=== PATIENT | female | born 1980 | race Caucasian/White ===

== ENCOUNTER 2021-06-26 14:09 | Emergency (ER) | payer OTHER ==
[2021-06-26] MEDS ORDERED: Sodium Chloride 0.9% 1,000 ML IV ONE (14:19)
[2021-06-26] MEDS ORDERED: Ondansetron 4 MG/2 ML SDV IVPUSH ONE (14:19)
--- NOTE | 2021-06-26 14:23 | EDM.PDOC ---
ED HPI GENERAL MEDICAL PROBLEM - General Chief Complaint: General Stated Complaint: COVID POSITIVE SOB Time Seen by Provider: 06/26/21 14:11 Source of Information: Reports: Patient History Limitations: Reports: No Limitations - History of Present Illness INITIAL COMMENTS - FREE TEXT/NARRATIVE: HISTORY AND PHYSICAL: History of present illness: Patient is a 40-year-old female who presents to the emergency room with complaints of cough and shortness of breath since 06/19/21 with a diagnosis of COVID-19 on 06/23/2021. She states over the past 2 to 3 days she has had increased SOB with nausea, vomiting, diarrhea and feeling lightheaded. She is tearful stating that she is home alone ( is out of town until 06/28/2021) and "never gets sick" and is scared. Patient denies any fever, chills, headache, change in vision, syncope or near syncope. Denies any back pain, abdominal pain, constipation or dysuria. She has no concern for . Has not noted any blood in urine or stool. Patient has not been eating and drinking appropriately. No recent travel or sick contacts. Review of systems: As per history of present illness and below otherwise all systems reviewed and negative. Past medical history: As per history of present illness and as reviewed below otherwise noncontributory. Surgical history: As per history of present illness and as reviewed below otherwise noncontributory. Social history: See social history for further information Family history: As per history of present illness and as reviewed below otherwise noncontributory. Physical exam: General: Well developed and well nourished 40-year-old female. Alert and orientated x 3. Nontoxic in appearance and in no acute distress. Vital signs are stable and have been reviewed by me. Nursing notes were reviewed. HEENT: Atraumatic, normocephalic, pupils equal and reactive bilaterally, negative for conjunctival pallor or scleral icterus, mucous membranes moist, TMs normal bilaterally, throat clear, neck supple, nontender, trachea midline. No drooling or trismus noted. No meningeal signs. No hot potato voice noted. Lungs: Clear to auscultation bilaterally. No wheezes, rales, or rhonchi. Chest nontender. Normal work of breathing, no accessory muscles used. Heart: S1S2, regular rate and rhythm without overt murmur, gallops, or rubs. No JVD. No peripheral edema Abdomen: Soft, nondistended, nontender. Normoactive bowel sounds. Negative for masses or costovertebral tenderness. Skin: Intact, warm, dry. No lesions or rashes noted. Hematologic: No petechiae or purpra. Mucosa appropriate color and normal nail bed color and refill. Extremities: Atraumatic, moves all extremities per self without difficulty or deficits, negative for cords or calf pain. Neurovascular unremarkable. Neuro: Awake, alert, oriented. Cranial nerves II through XII unremarkable. Cerebellum unremarkable. Motor and sensory unremarkable throughout. Exam nonfocal. Psychiatric: Mood and affect are appropriate. Normal thought process. Answering questions appropriately. Please note that the patient was seen and evaluated during the 2019 SARS-CoV-2 novel coronavirus pandemic period. Community viral transmission is ongoing at time of this encounter and the emergency department is operating under pandemic response procedures. Medical Decision Making: Patient is a 40-year-old female who has known COVID-19. She has had nausea, vomiting and diarrhea over the past few days along with a headache and shortness of breath. Patient states she feels anxious as she is home alone and never gets sick. Vital signs are stable and have been reviewed by me. EKG shows no acute or concerning findings. She does appear slightly dehydrated which is to be expected with the vomiting and diarrhea. We will do basic lab work, troponin and chest x-ray. All diagnostics are unremarkable. I have talked with the patient about today's findings, in addition to providing specific details for plan of care. Reassessm ent at the time of disposition demonstrates that the patient is in no acute distress. Will give prescription for Zofran. The patient is stable for discharge, counseling was provided and we discussed in great detail signs and symptoms that would prompt them to return to the Emergency Department. Medication, follow up and supportive care measures were reviewed and discussed. Voices understanding and is agreeable to plan of care. Denies any further questions or concerns at this time. Diagnostics: CBC, CMP, CXR, Troponin, EKG Therapeutics: IV fluids, Zofran, Toradol Prescription: Zofran Impression: COVID-19 Plan: 1. You were evaluated today on an emergent basis. You basic labs, cardiac labs, EKG, chest x-ray and vital signs and oxygen saturation are well enough that you were able to monitor your symptoms at home. Continue to monitor for trouble breathing, new confusion or inability to arouse, bluish lips or face or any of the other symptoms we discussed -if this occurs please return to the emergency room immediately. 2. Please self quarantine until cleared by [facility]. Inform any persons that you have been in contact with since you started becoming symptomat ic that you have tested positive; they should be made aware and take the appropriate steps as needed. 3. You can take NyQuil during the evening to help get a restful night sleep. May alternate Tylenol and ibuprofen as needed for pain and fever management. 4. The [facility] department will be calling you and following up with you. The [employer] Hotline phone number , They are open Wednesday - Wednesday 7am - 7pm. Follow up with your primary care provider for re-evaluation as directed. Definitive disposition and diagnosis as appropriate pending reevaluation and review of above. Headache Pain Score (Numeric/FACES): 9 - Related Data Allergies Allergy/AdvReac Type Severity Reaction Status Date / Time No Known Allergies Allergy Verified 06/26/21 14:21 Home Meds: Home Meds Ondansetron [Zofran ODT] 4 mg PO Q6H PRN #8 tab.dis 06/26/21 [Rx] ED ROS GENERAL - Review of Systems Review Of Systems: Comprehensive ROS is negative, except as noted in HPI. ED EXAM, GENERAL - Physical Exam Exam: See Below (See dictation) Course - Vital Signs Last Recorded V/S: Last Vital Signs Temp 98.5 F 06/26/21 15:32 Pulse 96 06/26/21 15:32 Resp 18 06/26/21 15:32 BP 117/71 06/26/21 15:32 Pulse Ox 98 06/26/21 15:32 - Orders/Labs/Meds Labs: Laboratory Tests 06/26/21 06/26/21 Range/Units 14:30 14:30 WBC 2.74 L (4.0-11.0) K/uL RBC 5.16 (4.30-5.90) M/uL Hgb 15.6 (12.0-16.0) g/dL Hct 45.0 (36.0-46.0) % MCV 87.2 (80.0-98.0) fL MCH 30.2 (27.0-32.0) pg MCHC 34.7 (31.0-37.0) g/dL RDW Std Deviation 38.2 (28.0-62.0) fl RDW Coeff of Shilo 12 (11.0-15.0) % Plt Count 102 L (150-400) K/uL MPV 12.00 (7.40-12.00) fL Neut % (Auto) 59.5 (48.0-80.0) % Lymph % (Auto) 34.3 (16.0-40.0) % Mccreary % (Auto) 5.8 (0.0-15.0) % Eos % (Auto) 0.0 (0.0-7.0) % Baso % (Auto) 0.4 (0.0-1.5) % Neut # (Auto) 1.6 (1.4-5.7) K/uL Lymph # (Auto) 0.9 (0.6-2.4) K/uL Mccreary # (Auto) 0.2 (0.0-0.8) K/uL Eos # (Auto) 0.0 (0.0-0.7) K/uL Baso # (Auto) 0.0 (0.0-0.1) K/uL Nucleated RBC % 0.0 /100WBC Nucleated RBCs # 0 K/uL Sodium 139 (136-145) mmol/L Potassium 3.5 (3.5-5.1) mmol/L Chloride 103 (98-107) mmol/L Carbon Dioxide 24.4 (21.0-32.0) mmol/L BUN 13 (7.0-18.0) mg/dL Creatinine 0.8 (0.6-1.0) mg/dL Est Cr Clr Drug Dosing 110.15 mL/min Estimated GFR (MDRD) > 60.0 ml/min Glucose 166 H (74-106) mg/dL Calcium 8.6 (8.5-10.1) mg/dL Total Bilirubin 0.3 (0.2-1.0) mg/dL AST 29 (15-37) IU/L ALT 36 (14-63) IU/L Alkaline Phosphatase 54 (46-116) U/L Troponin I < 0.050 (0.000-0.056) ng/mL Total Protein 7.8 (6.4-8.2) g/dL Albumin 3.4 (3.4-5.0) g/dL Globulin 4.4 H (2.6-4.0) g/dL Albumin/Globulin Ratio 0.8 L (0.9-1.6) Meds: Medications Discontinued Medications Generic Name Dose Route Start Last Admin Trade Name Freq PRN Reason Stop Dose Admin Sodium Chloride 1,000 mls @ 999 mls/hr 06/26/21 14:19 06/26/21 14:32 Normal Saline IV 06/26/21 15:19 999 mls/hr STAT ONE Administration Ketorolac Tromethamine 30 mg 06/26/21 15:05 06/26/21 15:18 Ketorolac 30 Mg/Ml Sdv IVPUSH 06/26/21 15:06 30 mg ONETIME ONE Administration Ondansetron HCl 4 mg 06/26/21 14:19 06/26/21 14:32 Ondansetron 4 Mg/2 Ml Sdv IVPUSH 06/26/21 14:20 4 mg ONETIME ONE Administration Departure - Departure Time of Disposition: 15:23 Disposition: Home, Self-Care 01 Clinical Impression: COVID-19 - Discharge Information Prescriptions: Ondansetron [Zofran ODT] 4 mg PO Q6H PRN #8 tab.dis PRN Reason: Nausea Instructions: 10 Things You Can Do to Manage Your COVID-19 Symptoms at Home - [facility] (01/03/2021) Referrals: Glory Foster DO [Primary Care Provider] - Forms: ED Department Discharge Additional Instructions: The following information is given to patients seen in the emergency department who are being discharged to home. This information is to outline your options for follow-up care. We provide all patients seen in our emergency department with a follow-up referral. The need for follow-up, as well as the timing and circumstances, are variable depending upon the specifics of your emergency department visit. If you don't have a primary care physician on staff, we will provide you with a referral. We always advise you to contact your personal physician following an emergency department visit to inform them of the circumstance of the visit and for follow-up with them and/or the need for any referrals to a consulting specialist. The emergency department will also refer you to a specialist when appropriate. This referral assures that you have the opportunity for follow-up care with a specialist. All of these measure are taken in an effort to provide you with optimal care, which includes your follow-up. Under all circumstances we always encourage you to contact your private physician who remains a resource for coordinating your care. When calling for follow-up care, please make the office aware that this follow-up is from your recent emergency room visit. If for any reason you are refused follow-up, please contact the [facility] Emergency Department at and asked to speak to the emergency department charge nurse. [facility] [address] [place] [id number] [facility] [address] [place] [id number] Thank you for choosing the [facility] emergency department in [place] for your medical needs today. It was a pleasure caring for you. Today you were seen in the emergency department for COVID-19 symptoms. Your prescription was electronically sent to: [facility] Medication/Directions: Zofran as needed for nausea 1. You were evaluated today on an emergent basis. You basic labs, cardiac labs, EKG, chest x-ray and vital signs and oxygen saturation are well enough that you were able to monitor your symptoms at home. Continue to monitor for trouble breathing, new confusion or inability to arouse, bluish lips or face or any of the other symptoms we discussed -if this occurs please return to the emergency room immediately. 2. Please self quarantine until cleared by [facility]. Inform any persons that you have been in contact with since you started becoming symptomatic that you have tested positive; they should be made aware and take the appropriate steps as needed. 3. You can take NyQuil during the evening to help get a restful night sleep. May alternate Tylenol and ibuprofen as needed for pain and fever management. 4. The [facility] department will be calling you and following up with you. The [place] COVID 19 Hotline phone number , They are open Wednesday - Wednesday 7am - 7pm. Follow up with your primary care provider for re-evaluation as directed. Sepsis Event Note (ED) - Focused Exam Vital Signs: Vital Signs Temp Pulse Resp BP Pulse Ox 06/26/21 15:32 98.5 F 96 18 117/71 98 06/26/21 15:14 88 19 116/74 99 06/26/21 14:15 97.4 F 105 H 20 118/84 96
--- NOTE | 2021-06-26 14:41 | PCM.EKG ---
#1 Interpretation EKG Date: 06/26/21 Time: 14:33 Rhythm: NSR Rate (Beats/Min): 87 [place]: Normal P-Wave: Present QRS: Normal ST-T: Normal QT: Normal KS/PQ Interval: 134 Comparison: NA - No Prior EKG EKG Interpretation Comments: normal EKG
[2021-06-26] MEDS ORDERED: Ketorolac 30 MG/ML SDV IVPUSH ONE (15:05)
--- NOTE | 2021-06-26 15:13 | CR ---
INDICATION: Shortness of breath. TECHNIQUE: Chest 1 view. COMPARISON: None. FINDINGS: No focal consolidation, pleural effusion, or pneumothorax. Normal heart size and pulmonary vascularity. The bones are unremarkable. IMPRESSION: No acute cardiopulmonary findings. Dictated by Taylor Degroot MD @ 06/26/2021 3:12:25 PM (Electronically Signed)
[2021-06-26 15:14] LABS: BLOOD UREA NITROGEN,BUN 13 mg/dL (7.0-18.0); CARBON DIOXIDE,CO2 24.4 mmol/L (21.0-32.0); CHLORIDE,CL 103 mmol/L (98-107); GLUCOSE RANDOM 166 mg/dL (74-106); POTASSIUM,K 3.5 mmol/L (3.5-5.1); SODIUM,NA 139 mmol/L (136-145)
== END 2021-06-26 15:33 | disposition home or self-care (01) ==
LOC: MW.ED 14:09
DX: U07.1 COVID-19 (principal)
CPT/HCPCS: 36415; 71045; 80053; 84484; 85025; 93005; 96374; 96375; 99285; J1885; J2405; J7030

== ENCOUNTER 2023-02-04 17:46 | Emergency (ER) | payer OTHER, MEDICAID ==
[2023-02-04] MEDS ORDERED: oxyCODONE 5 MG Tab PO STA (18:20)
[2023-02-04] MEDS ORDERED: Acetaminophen 500 MG Tab PO STA (18:21)
[2023-02-04] MEDS ORDERED: Ibuprofen 800 MG Tab PO STA (18:21)
== END 2023-02-04 19:49 | disposition home or self-care (01) ==
LOC: MW.ED 17:46
DX: M54.50 Low back pain, unspecified (principal); Z88.8 Allergy status to other drugs, medicaments and biological substances; V89.2XXA Person injured in unspecified motor-vehicle accident, traffic, initial encounter; Y92.410 Unspecified street and highway as the place of occurrence of the external cause
CPT/HCPCS: 72070; 72100; 99283; A9270

== ENCOUNTER 2024-10-01 13:05 | Emergency (ER) | payer MEDICAID ==
[2024-10-01] MEDS: Lidocaine/Epineph/Tetracaine 3 ML Syringe TOP ONE (13:33)
[2024-10-01] MEDS: Lidocaine 1% 5 ML VIAL INJECT ONE (15:03)
== END 2024-10-01 15:04 | disposition home or self-care (01) ==
LOC: MW.ED 13:05
DX: S61.211A Laceration without foreign body of left index finger without damage to nail, initial encounter (principal); Z90.49 Acquired absence of other specified parts of digestive tract; Z88.8 Allergy status to other drugs, medicaments and biological substances; Z75.3 Unavailability and inaccessibility of health-care facilities; W23.1XXA Caught, crushed, jammed, or pinched between stationary objects, initial encounter
CPT/HCPCS: 12001; 73140; 99283; A9270; J2003; 12041

== ENCOUNTER 2024-10-11 12:14 | Emergency (ER) | payer MEDICAID | END 2024-10-11 12:48 | disposition left against medical advice (07) | LOC: MW.ED 12:14 | DX: S61.213D Laceration without foreign body of left middle finger without damage to nail, subsequent encounter (principal); X58.XXXD Exposure to other specified factors, subsequent encounter | CPT/HCPCS: 99281 ==